=== PATIENT | male | born 1965 | race Caucasian/White ===

== ENCOUNTER → 2016-12-08 | Outpatient (CLI) | payer MEDICAID | LOC: FLAB 12:17 | PROVIDERS: ATTEND Physician Assistant | DX: R07.9 Chest pain, unspecified (principal) ==

== ENCOUNTER 2017-06-13 00:59 | Observation (INO) | payer MEDICAID, OTHER ==
[2017-06-13] MEDS ORDERED: NS 1,000 ML IV ONE (01:02)
--- NOTE | 2017-06-13 01:07 | EDPHY ---
H & P Time Seen by Provider: 06/13/17 01:02 HPI/ROS: CHIEF COMPLAINT: Stroke alert HISTORY OF PRESENT ILLNESS: The patient is a 52-year-old man brought into the emergency department as a stroke alert from [facility]. He was being treated there with Librium for what was thought to be alcohol withdrawal. He was tremulous, tachycardic and hypertensive. He has a history of hypertension. He was given 100 mg of Librium at 3 min before midnight. When the [facility] nurse returned to find him at 12:20 a.m. he was not moving the left side of his body. EMS states that his smile was crooked and that he would not move his left arm or leg for them. Patient has a history of hypertension attention deficit hyperactivity disorder only. He does not take blood thinners. The patient states that he thinks he may have had a seizure because he was shaking intensely throughout his entire body however he remembers the event and states that he did not lose consciousness. REVIEW OF SYSTEMS: Constitutional: denies: chills, fever, recent illness, recent injury EENTM: denies: blurred vision, double vision, nose congestion Respiratory: denies: cough, shortness of breath Cardiac: denies: chest pain, irregular heart rate, lightheadedness, palpitations Gastrointestinal/Abdominal: denies: abdominal pain, diarrhea, nausea, vomiting, blood streaked stools Genitourinary: denies: dysuria, frequency, hematuria, pain Musculoskeletal: denies: joint pain, muscle pain Skin: denies: lesions, rash, jaundice, bruising Neurological: denies: headache, numbness, paresthesia, tingling, dizziness, weakness Hematologic/Lymphatic: denies: blood clots, easy bleeding, easy bruising Immunologic/allergic: denies: HIV/AIDS, transplant EXAM: GENERAL: Well-appearing, well-nourished and in no acute distress. HEAD: Atraumatic, normocephalic. EYES: Pupils equal round and reactive to light, extraocular movements intact, sclera anicteric, conjunctiva are normal. ENT: TMs normal, nares patent, oropharynx clear without exudates. Moist mucous membranes. NECK: Normal range of motion, supple without lymphadenopathy or JVD. LUNGS: Breath sounds clear to auscultation bilaterally and equal. No wheezes rales or rhonchi. HEART: Regular rate and rhythm without murmurs, rubs or gallops. ABDOMEN: Soft, nontender, normoactive bowel sounds. No guarding, no rebound. No masses appreciated. BACK: No CVA tenderness, no spinal tenderness, step-offs or deformities EXTREMITIES: Normal range of motion, no pitting or edema. No clubbing or cyanosis. NEUROLOGICAL: Cranial nerves II through XII grossly intact although minimal effort. Normal speech. 4/5 strength in right arm and leg, 3/5 in left arm, 4/ 5 in left leg, NIH stroke score 2, PSYCH: Normal mood, normal affect. SKIN: Warm, dry, normal turgor, no visible rashes or lesions. Source: Patient Exam Limitations: No limitations - Personal History Tetanus Vaccine Date: < 10 YEARS - Medical/Surgical History Hx Asthma: No Hx Chronic Respiratory Disease: No Hx Diabetes: No Hx Cardiac Disease: No Hx Renal Disease: No Hx Cirrhosis: No Hx Alcoholism: Yes Hx HIV/AIDS: No Hx Splenectomy or Spleen Trauma: No Other PMH: HTN, 3 HERNIA SURG, FACE SURG/PLATES - Family History Significant Family History: No pertinent family hx - Social History Smoking Status: Current every day smoker Alcohol Use: None Constitutional: Initial Vital Signs Temperature (C) 36.5 C 06/13/17 00:58 Heart Rate 60 06/13/17 00:58 Respiratory Rate 21 H 06/13/17 00:58 Blood Pressure 209/163 H 06/13/17 00:58 O2 Sat (%) 100 06/13/17 00:58 O2 Delivery Mode Room Air Allergies/Adverse Reactions: No Known Allergies Allergy (Unverified 01/19/16 15:15) Home Medications: Medication Instructions Recorded ALPRAZolam [Xanax 0.5 MG (*)] 0.5 mg PO TID PRN 06/13/17 Dextroamphetamine Sulfate 20 mg PO QID 06/13/17 Lisinopril [Zestril 20 mg (*)] 20 mg PO DAILY 06/13/17 levETIRAcetam [Keppra 500 mg (*)] 500 mg PO BID #60 tab 06/13/17 Medical Decision Making - Diagnostics Imaging: Discussed imaging studies w/ square dance caller Radiologist ED Course/Re-evaluation: The patient's neuro exam is hard to tell because he appears to place minimal effort into the exam and is somewhat sedated. His exam at the minimum seems to be improving. According to paramedics he had a crooked smile and would not lift his left arm or leg up off the bed at all. To me his smile is equal and his tongue does not deviate. He will lift both arms and legs off of bed but does have a slight droop of each the left arm and left leg. More pronounced in the arm although it does seem to take him some time and great effort to move any of his extremities. I examined him quickly in the hallway and called [facility] while he went to CT scanning. 1:13 a.m. I discussed the case Dr. Torres from [facility]. We will call her back when the patient is a CT scan. 1:20 a.m. I learned from paramedics that his initial blood glucose on arrival was 49. They gave him some oral glucose. This may be why his symptoms had improved by the time he arrived here. On our recheck it was 85. The patient tells me that he has not had alcohol in several weeks but that he was withdrawing from alprazolam and this is why he received Librium tonight. 1:47 a.m. I discussed the case again with Dr. Hutchins. She feels that this is most likely not a stroke and does not recommend tPA. If his symptoms persist however she recommended attention and MRI in the morning. It is currently 180/ 116. I will give him a small dose of labetalol. Differential Diagnosis: Partial list of the Differential diagnosis considered include but were not limited to; medication reaction, hypoglycemia, TIA, CVA, seizure and although unlikely based on the history and physical exam, I also considered dissection, hemorrhage, anxiety. - Data Points Laboratory Results: Laboratory Results 06/13/17 01:09 06/13/17 01:09 Medications Given: Discontinued Medications Acetaminophen (Tylenol) 650 mg PO Q4HRS PRN PRN Reason: Pain, Mild/Fever, Can Take PO Stop: 12/10/17 03:33 Last Admin: 06/13/17 14:57 Dose: 650 mg Aspirin (Aspirin) 324 mg PO EDNOW ONE Stop: 06/13/17 02:00 Last Admin: 06/13/17 02:07 Dose: 324 mg Aspirin (Aspirin) 81 mg PO DAILY AIME Stop: 12/10/17 08:59 Last Admin: 06/13/17 11:31 Dose: 81 mg Dextrose (Dextrose 50% Syringe) 25 gm IVP EDNOW ONE Stop: 06/13/17 01:25 Last Admin: 06/13/17 01:30 Dose: 25 gm Enoxaparin Sodium (Lovenox) 40 mg SC DAILY AIME Stop: 12/10/17 08:59 Last Admin: 06/13/17 11:31 Dose: 40 mg Sodium Chloride (Ns) 1,000 mls @ 500 mls/hr IV EDNOW ONE PRN Reason: Protocol Stop: 06/13/17 03:01 Last Admin: 06/13/17 01:31 Dose: 1,000 mls Labetalol HCl (Trandate Injection) 10 mg IVP EDNOW ONE Stop: 06/13/17 01:55 Last Admin: 06/13/17 01:58 Dose: 10 mg Departure - Departure Disposition: [facility] Clinical Impression: Left arm weakness Condition: Fair
[2017-06-13 01:17] LABS: PLATELET COUNT 157 10^3/uL (150-400)
[2017-06-13] MEDS ORDERED: D50W 25 GM/50 ML SYR IVP ONE (01:24)
[2017-06-13 01:26] LABS: INR 1.23 (0.83-1.16); PROTIME(PATIENT) 15.7 SEC (12.0-15.0)
[2017-06-13] MEDS ORDERED: LABETALOL HCL 5 MG/ML 20 ML MDV IVP ONE (01:54)
[2017-06-13] MEDS ORDERED: ASPIRIN 81 MG CHEWABLE TAB PO ONE (01:59)
[2017-06-13] MEDS ORDERED: ACETAMINOPHEN 325 MG TAB PO PRN (03:34)
[2017-06-13] MEDS ORDERED: ONDANSETRON 4 MG/2 ML VIAL IVP PRN (03:34)
[2017-06-13] MEDS ORDERED: LABETALOL HCL 5 MG/ML 20 ML MDV IVP PRN (03:37)
[2017-06-13] MEDS ORDERED: D50W 25 GM/50 ML SYR IVP PRN (06:48)
--- NOTE | 2017-06-13 07:57 | GHP ---
[f rep st] HISTORY AND PHYSICAL DATE OF ADMISSION: 06/13/2017 SOURCE: Patient provides history, appears reliable. EMR reviewed, and case discussed with ED provider. CHIEF COMPLAINT: Seizure and left-sided weakness. HISTORY OF PRESENT ILLNESS: This is a 52-year-old gentleman with past medical history significant for hypertension, ADHD, anxiety who presents to the emergency department from retirement this evening with complaints of left-sided weakness. Patient believes that he has had a seizure related to withdrawals from his Xanax which he takes on a regular basis. No witnessed seizures reported from staff or EMS. Patient is incarcerated currently, and he presented to the retirement nurse with concerns for possible withdrawal. Patient was given 100 mg dose of Librium approximately midnight. When the nursing staff went to go check on the patient, he was unresponsive and noted to have left- sided weakness. No reported urinary or fecal incontinence. Patient reports initially he had a headache which has now since resolved. He has no previous history of seizures or withdrawals. He does report some mild numbness, tingling in both hands. Nothing in his lower extremities. He reports some blurry vision, but notes that he does not have his glasses accessible. He denies any chest pain, shortness of breath, cough, recent fevers, chills, dysuria, or diarrhea. REVIEW OF SYSTEMS: CONSTITUTIONAL: Patient reports that he was feeling diaphoretic earlier this evening, before his dose of Librium. He denies any fevers or chills. ENT: Patient denies any congestion, sore throat. SKIN: No new rashes, sores. EYES: Blurry vision as noted above. Patient does wear glasses. CV: Patient denied any chest pain. No palpitations. RESPIRATORY: No shortness of breath or cough. GI: No nausea, vomiting, abdominal pain, or diarrhea. : No dysuria, hematuria. MUSCULOSKELETAL: As noted above, in HPI. PSYCHIATRIC: Patient denies any anxiety, depression. No SI or HI. ALLERGIES: No known drug allergies. HOME MEDICATIONS: Xanax, lisinopril, HCTZ, Adderall. PAST MEDICAL HISTORY: Significant for hypertension, ADHD, anxiety, and question of alcohol dependence. However, patient reports that he does not have issues with alcohol. Rather, he takes his Xanax on a regular scheduled basis and has rarely missed any doses. PAST SURGICAL HISTORY: Significant for hernia repair x3, facial reconstruction with plates, tonsillectomy, adenoidectomy. FAMILY HISTORY: Patient denies any diabetes, hypertension. SOCIAL HISTORY: Patient currently incarcerated, and he has been in retirement for the last 6 days. He has not had any tobacco, drugs, or alcohol use since that time. Prior to this, he did smoke on a regular basis, and only reports occasional alcohol, but not on a daily basis. He also admits to use of marijuana occasionally. After discussion with ED provider, there is a question whether patient has been abusing his prescribed controlled substances, including his Adderall. There is some question if he ever has a history of crushing and snorting, rather than taking as prescribed. CODE STATUS: Full. PHYSICAL EXAMINATION: VITAL SIGNS: Upon arrival to the emergency department, blood pressure 209/163, heart rate 60, respiratory rate 21, O2 sat 100% on room air with a temperature of 36.5. Vitals at time of interview: Blood pressure 147/91, heart rate 67, respiratory rate 18, O2 sat 99% on room air. GENERAL: No acute distress. Adult male is lying quietly in bed. HEAD: Normocephalic, atraumatic. EYES: Extraocular muscles grossly intact. Pupils equal, round. Decreased reactivity to light bilaterally, but symmetric. No scleral icterus or conjunctival injection. ENT: Mucous membranes appear slightly dry. No oropharyngeal erythema or exudates. NECK: Supple. Trachea midline. CV: Regular rate and rhythm. No murmurs, rubs, or gallops appreciated. RESPIRATORY : Unlabored breathing. Lungs are clear to auscultation bilaterally. No wheezes, rales, or rhonchi. Patient with slightly decreased inspiratory effort. ABDOMEN: Positive bowel sounds. Soft, nontender to palpation. No rebound, guarding, or masses appreciated. : No suprapubic tenderness to palpation. No Alaniz in place. EXTREMITIES: Patient without any cyanosis, clubbing, or edema appreciated. 2+ pedal pulses bilaterally and symmetric. MUSCULOSKELETAL: Patient strength 4/5 in the upper and lower left-sided extremities compared to the right. Patient does appear to have slightly decreased effort, despite requesting for patient to try to increase use of strength during the exam. Patient is awake, alert, and oriented x4. PSYCHIATRIC: Patient's affect is slightly flat. He is cooperative, awake, otherwise. LABORATORY DATA: WBC 6.82, H and H 15.5 and 44.3, MCV of 92.9, platelet count is 157, no bands. PT is 15.7, INR 1.23, PTT is 34.9. Sodium is 143, potassium is 3.5, chloride 107, CO2 is 26, anion gap 12, BUN 12, creatinine 0.9, GFR of greater than 60, glucose is 87, calcium 9.1. Troponin is negative. Glucose on initial arrival is 87. Prior to this, was 49 en route and currently 246, following a dose of D50. Telemetry showing normal sinus rhythm. Will obtain an EKG. CT head: Image report reviewed. Negative for acute ischemia or bleed. CTA head and neck: Negative. Limited images available on the viewer for review. ASSESSMENT AND PLAN: This is a 52-year-old gentleman with history of hypertension, attention-deficit, hyperactivity disorder, on chronic benzodiazepine and amphetamine therapy, who presents to the emergency department from retirement with complaints of left-sided weakness. 1. Left-sided weakness. Initial evaluation is negative for any evidence of acute cerebrovascular accident. Some of patient's symptoms have improved since arrival from the retirement, including resolution of his left facial droop, but he continues to have some left-sided weakness in the upper and lower extremities. Differential diagnosis including cerebrovascular accident versus transient ischemic attack versus Johnnie paralysis with patient complaining of having had a seizure (no reports of witnessed activity) versus hypoglycemia which has been treated versus conversion disorder or secondary gain. Emergency room provider consulted [facility] with recommendations that, if patient's symptoms do not improve, he should continue on with a full ischemic workup. Patient received full dose aspirin in the emergency department. We will place him on neuro protocol for closer monitoring, and plan for MRI in the morning and echocardiogram. During his emergency room stay, patient has asked on numerous occasions for various items and to speak with his , although this is not permitted directly from the emergency room, and must go through the retirement system. 2. Hypoglycemia. Patient reports normal appetite, but variable food access while in retirement. He reports that he is always feeling hungry. We will plan to monitor and treat appropriately, if needed. We will place patient on hypoglycemia protocol. 3. Possible benzodiazepine withdrawal. Patient has already received 100 mg of Librium. We will plan to monitor. He does have a little bit of a tremor in both hands. Blood pressures were initially elevated, now improved, status post dose of labetalol. We will plan to monitor and replete benzodiazepines as needed. 4. Benign essential hypertension. Blood pressures initially elevated as above , have now improved. We will plan to continue to monitor. Patient reports that he takes lisinopril and hydrochlorothiazide on a daily basis, but we will try to obtain appropriate home dosing and resume. 5. Anxiety and depression. Benzodiazepine replacement p.r.n. Patient without any suicidal ideation or homicidal ideation. 6. Fluid, electrolyte, nutrition. IV fluid hydration. Patient will have a swallow evaluation, and then regular diet, if passed. Electrolytes will be monitored and replaced, if needed. 7. Prophylaxis: Sequential compression devices and Lovenox. 8. Code status is full. Patient desires his full to act as proxy listed as next of kin. DISPOSITION: Patient has been admitted to observation on the neurology floor, med/surg, for observation, pending further evaluation of his imaging studies as above. /[id number]/MODL MTDD
--- NOTE | 2017-06-13 08:49 | CPEKG ---
Heart Rate: 63 RR Interval: 952 P-R Interval: 144 QRSD Interval: 96 QT Interval: 444 QTC Interval: 455 P [place]: 56 QRS [place]: 63 T Wave [place]: 14 EKG Severity - BORDERLINE ECG - EKG Impression: SINUS RHYTHM EKG Impression: BORDERLINE INFERIOR Q WAVES Electronically Signed By: Deyvi Gaines 13-Jun-2017 12:35:42
[2017-06-13] MEDS ORDERED: ENOXAPARIN 40 MG/0.4 ML SYR SC SCH (09:00)
[2017-06-13] MEDS ORDERED: ASPIRIN 81 MG CHEWABLE TAB PO SCH (09:00)
[2017-06-13 10:58] LABS: PLATELET COUNT 141 10^3/uL (150-400)
--- NOTE | 2017-06-13 11:54 | ECHO ---
[email or web address] [address] [address] Main: [phone] Fax: [email or web address] Echocardiogram Name: ALETHEA JUDD MR#: [id number] Study Date: 06/13/2017 Study Time: 10:14 AM Date of : 1965 Age: 52 year(s) Height: 175.3 cm (69 in.) Weight: 76.2 kg (168 lb.) BSA: 1.92 m2 Gender: Male Examination: Echo Indication: TIA, Left sided weakness Image Quality: Contrast: Requested by: Amanda Back BP: 164 mmHg/96 mmHg Heart Rate: Rhythm: Normal sinus rhythm Indication: TIA, Left sided weakness Procedure Staff Transmission Builder: Dwayne Jiang Reading Physician: Deyvi Gaines Requesting Provider: Conclusions: Normal size left ventricle. No LV hypertrophy. Global hypercontractility of the left ventricle. EF is 80 %. No regional wall motion abnormality. Diastolic dysfunction is present. . Normal RV function. An agitated saline study was performed and was negative for intracardiac shunting. There is no mitral valve regurgitation. The aortic valve is normal in appearance and function. Measurements: Chambers Valvular Assessment AV/MV Valvular Assessment TV/PV Normal Normal Normal Name Value Range Name Value Range Name Value Range Ao Capri (MM): 3.4 cm (2.2 cm-3.7 AV Vmax: 1.63 m/s (1 m/s-1.7 TR Vmax: 2.55 mm/s ( - ) cm) m/s) TR PGmax: 26 mmHg ( - ) IVSd (2D): 0.9 cm (0.6 cm-1.1 AV maxP mmHg ( - ) syst. PAP: 31 mmHg ( - ) cm) LVOT Vmax: 1.42 m/s (0.7 m/s-1.1 PV Vmax: 1.02 m/s (0.6 m/s-0.9 LVDd (2D): 4.3 cm (4.2 cm-5.9 m/s) m/s) cm) MV E Vmax: 0.94 m/s ( - ) PV PGmax: 4 mmHg ( - ) LVDs (2D): 2.2 cm (2.1 cm-4 MV A Vmax: 0.88 m/s ( - ) cm) MV E/A: 1.07 ( - ) LVPWd (2D): 0.9 cm (0.6 cm-1 cm) LVEF (2D): 80 (>=54 %) Continued Measurements: Chambers Valvular Assessment AV/MV Valvular Assessment TV/PV Patient: ALETHEA JUDD Study Date: 06/13/2017 Page 1 of 2 10:14 AM Name Value Name Value Name Value LADs Lon.0 cm MV E' Septal: 0.07 m/s CVP (est.): 5 mmHg LA Area: 19.1 cm2 MV E/E' Septal: 12.70 MV E/E' Lateral: 12.00 Findings: Left Ventricle: Normal size left ventricle. No LV hypertrophy. Global hypercontractility of the left ventricle. EF is 80 %. No regional wall motion abnormality. Diastolic dysfunction is present. . Right Ventricle: Upper normal size right ventricle. Normal RV function. Left Atrium: The left atrium is normal in size. An agitated saline study was performed and was negative for intracardiac shunting. Right Atrium: The right atrium is normal in size. Mitral Valve: The mitral valve is normal in appearance and function. There is no mitral valve regurgitation. Aortic Valve: The aortic valve is tri-leaflet. The aortic valve is normal in appearance and function. Tricuspid Valve: The tricuspid valve is normal in appearance and function. Pulmonic Valve: The pulmonic valve is normal in appearance and function. Aorta: The aorta is normal. Pericardium: No pericardial effusion. (No Signature Object) Patient: ALETHEA JUDD Study Date: 06/13/2017 Page 2 of 2 10:14 AM [id number]
[2017-06-13 13:10] VITALS: BP 145/91; PULSE 69; RESP 22; TEMP 98.1; O2SAT 98
--- NOTE | 2017-06-13 16:36 | PDIAF ---
- Diagnosis Diagnosis: unilateral neurologic symptoms Code Status: Full Code - Medication Management Discharge Medications: Medications to Continue on Transfer ALPRAZolam [Xanax 0.5 MG (*)] 0.5 mg PO TID PRN 06/13/17 [Last Taken 10 Days Ago ~06/03/17] Dextroamphetamine Sulfate 20 mg PO QID 06/13/17 [Last Taken 10 Days Ago ~] Lisinopril [Zestril 20 mg (*)] 20 mg PO DAILY 06/13/17 [Last Taken 2 Days Ago ~ 06/11/17] levETIRAcetam [Keppra 500 mg (*)] 500 mg PO BID #60 tab 06/13/17 [Last Taken Unknown] Discharge Medications: Refer to the Discharge Home Medication list for PRN reason. - Orders Diet Recommendation: no restrictions on diet Diet Texture: Regular Texture Diet Additional: seizure precautions- no driving before seen by neurology outpatient - Follow Up Care Current Providers and Referrals: Tulio Duran DO [Medical Doctor] - Patient,NotPresent [Unknown] - As per Instructions
--- NOTE | 2017-06-13 16:41 | NEUROPROG ---
Assessment: [id number] Neurology Consult: CC: Dr. Mcdonnell consulted neurology for left sided weakness and possible seizure. Results placed in EMR for her review. HPI: Initially seen 06/13/17. The patient was currently in long term and reported he felt he had a seizure from Xanax withdrawal and also new left sided weakness ( subjective report per patient). Pt had librium last evening to prevent xanax withdrawal. This morning the long term nurse found the patient unresponsive and with left sided weakness. The patient awoke shortly afterwards. A brain MRI and CTA head/neck was unremarkable. When I evaluated the patient he felt tired and felt his left hand was slightly weak but otherwise denied any major problems. PMHx: HTN, ADHD, anxiety, possible alcohol dependence, facial surgery, hernia x 3, T&A Home Meds: Xanax, lisinopril, HTCZ, Adderall SHx: patient currently in long term, no drugs/alcohol for >6 days FHx: no DM, HTN ROS: Pt denied acute fever, total vision loss, active severe chest pain, respiratory failure, total body severe rash, total bowel/bladder incontinence, psychosis, active seizures, or active bleeding O: VS reviewed General: Alert Eyes: Fundoscopic exam not able to visualize optic disks CV: Heart RRR, no murmur, no carotid bruit Lungs: Clear to auscultation bilaterally, no rhonchi or rales Neuro: - Mental: . Oriented x person/place/date . concentration appears normal . speech fluency/comprehension normal . memory appears normal . fund of knowledge appear intact - Cranial Nerves: . II: PERRL, VFFTC . III/IV/: EOMI, no nystagmus, normal smooth pursuits, no Ptosis . V: facial sensation intact to LT . VII: face symmetric to eye closure and smile . VIII: hearing intact to conversation . IX/X: uvula raises symmetrically . XI: SCM 5/5 B/L strength . XII: tongue protrudes midline w/nl strength - Motor: . Tone: normal tone in all 4 extremity . Strength: no pronator drift, strength 5/5 throughout but it does appear he has some mild left arm give-way weakness - Reflexes: B/L bic/BR/patella 2/4 - Sensory: all 4 extremity intact to light touch - Coord: [id number] wnl, LENKA wnl, [id number] wnl - Gait: deferred Labs: 06/13/17- CBC Plt 141L, INR 1.23H APTT wnl, CMP Na 145H GLuc 246H, Trop neg Rads: 06/13/17- CTA head/neck: unremarkable 06/13/17- Brain MRI w/o con: Negative. No ischemia, hemorrhage, or mass (I personally visualized the images on 06/13/17) Assessment: 1. Possible Seizure that may have caused post-ictal left sided paralysis: Normal neurologic exam 06/13/17 (other than left arm mild give-way weakness) and normal brain MRI and CTA head/neck 06/13/17. History of possible seizure following benzodiazepine withdrawal that may have caused some left sided post- ictal paralysis. I would expect the left sided weakness to resolve. No further w/u needed at this time. Plan: - Consider stopping Adderall as it lowers Seizure threshold - Begin Keppra 500 mg bid for seizure prevention - Recommend avoiding benzodiazepine in the future due to seizure risk - Seizure precautions and no driving until seizure free for 90 days - Outpatient f/u with neurology in 1-4 weeks, consider stopping Keppra at that time Objective: Vital Signs Temp Pulse Resp BP Pulse Ox 36.7 C 69 22 H 145/91 H 98 06/13/17 12:00 06/13/17 12:00 06/13/17 12:00 06/13/17 12:00 06/13/17 12:00 Laboratory Results 06/13/17 10:53 06/13/17 10:53 06/12/17 06/13/17 06/14/17 05:59 05:59 05:59 Intake Total 500 Balance 500 PT 15.7 SEC (12.0-15.0) H 06/13/17 01:09 INR 1.23 (0.83-1.16) H 06/13/17 01:09 Allergies/Adverse Reactions: No Known Allergies Allergy (Unverified 01/19/16 15:15)
--- NOTE | 2017-06-13 17:06 | ASDISCHSUM ---
Discharge Information Plan Status:Home with No Needs Medically Cleared to Leave: Discharge Date:06/13/2017 04:52 PM CM D/C Disposition: ADT D/C Disposition:Home, Routine, Self-Care Projected Discharge Date:06/13/2017 04:52 PM Transportation at D/C: Discharge Delay Reason: Follow-Up Date:06/13/2017 04:52 PM Discharge Slot: Final Diagnosis: Placement Information Patient Contact Information Contact Name:CATHERINE Relationship: Address:[address] [place] [address] [id number] City:[place] Alternate Phone: State/Zip Code:[place] [address] Email: Financial Information Financial Class:Commercial Primary Plan Desc:[facility] Primary Plan Number:[id number] Secondary Plan Desc: Secondary Plan Number: Assessment Information Intervention Information
--- NOTE | 2017-06-13 19:05 | GDS ---
[f rep st] DISCHARGE SUMMARY DISCHARGE DIAGNOSES: 1. Unilateral neurologic symptoms. 2. Possible benzodiazepine withdrawal seizure. 3. Attention deficit hyperactivity disorder. 4. Benzodiazepine addiction. HISTORY OF PRESENT ILLNESS: A 52-year-old incarcerated male, who presents with unilateral symptoms o n the left of weakness, tingling. For details of the patient's initial presentation, please see the history and physical dated 06/13/2016. CONSULTATIVE SERVICES: Neurology. PROCEDURES: On this patient, on 06/13/2017, patient had a CTA of the head and neck that showed no fl ow-limiting stenoses. On 06/13/2017, patient had a MRI of the brain that showed no stroke. On 06/13, patient had a transthoracic echocardiogram that showed no abnormalities. HOSPITAL COURSE BY ISSUE: Unilateral neurologic symptoms. It is unclear at the time of the disposit ion if the patient had a benzodiazepine-related seizure or possible stroke, although imaging is negat marija. Case was reviewed with Neurology and felt safest to place the patient on b.i.d. Keppra for seiz ure prophylaxis. He is to follow in the outpatient clinic in the next week for his first post dispos ition followup. MEDICATIONS AT THE TIME OF DISPOSITION: Please reference the med rec printed on 06/13/2017. FOLLOWUP APPOINTMENTS: With Dr. Duran next week for his first post disposition followup. Patient has been instructed not to drive a car until re-evaluated in the outpatient setting by Neurology. /[id number]/MODL
== END 2017-06-13 16:52 | disposition home or self-care (01) ==
LOC: EDUNIT# → F3N 07:55
PROVIDERS: ADMIT Family Medicine; ATTEND Family Medicine
DX: R29.818 Other symptoms and signs involving the nervous system (principal); R56.9 Unspecified convulsions; F90.9 Attention-deficit hyperactivity disorder, unspecified type; F13.20 Sedative, hypnotic or anxiolytic dependence, uncomplicated; R53.1 Weakness
CPT/HCPCS: 70450; 70496; 70498; 70551; 92523; 93005; 93306; G0378; 82947-QW; 96374; J1650; J3490

== ENCOUNTER → 2018-03-01 | Outpatient (CLI) | payer MEDICAID | LOC: FIMAGING 12:39 → EDSTATUS 12:39 | PROVIDERS: ATTEND Nurse Practitioner | DX: J98.4 Other disorders of lung (principal) | CPT/HCPCS: 87497-90 ==

== ENCOUNTER → 2018-11-01 | Outpatient (CLI) | payer MEDICAID | LOC: FIMAGING 11:34 | PROVIDERS: ATTEND Nurse Practitioner | DX: M19.032 Primary osteoarthritis, left wrist (principal) ==